=== PATIENT | female | born 1955 | race Caucasian/White ===

== ENCOUNTER 2025-03-11 11:02 | Emergency (ER) | payer MEDICARE | END 2025-03-11 13:39 | disposition home or self-care (01) | LOC: JP.ED 11:02 | DX: S06.0X0A Concussion without loss of consciousness, initial encounter (principal); Z79.899 Other long term (current) drug therapy; Z79.82 Long term (current) use of aspirin; Z79.85 Long-term (current) use of injectable non-insulin antidiabetic drugs; W01.198A Fall on same level from slipping, tripping and stumbling with subsequent striking against other object, initial encounter; Y93.89 Activity, other specified | CPT/HCPCS: 70450; 70450-26; 70486; 70486-26; 72125; 72125-26; 99283; 99284 ==